=== PATIENT | male | born 1970 | race African-American/Black ===

== ENCOUNTER 2020-03-26 09:44 | Emergency (ER) | payer SELFPAY ==
[~2020-03-26] VITALS: Ht 185.4 cm; Wt 120.0 kg
[2020-03-26 10:26] LABS: BASOPHILS % (AUTO) 0.5 % (0.0-2.0); EOSINOPHILS % (AUTO) 4.2 % (1.0-6.0); HEMATOCRIT 40.7 % (41-53); HEMOGLOBIN 13.2 g/dL (13.5-17.5); LYMPHOCYTES % (AUTO) 26.7 % (22.0-44.0); MEAN CORPUSCULAR HEMOGLOBIN 30.7 pg (26.0-34.0); MEAN CORPUSCULAR HGB CONC 32.4 G/dL (31.0-37.0); MEAN CORPUSCULAR VOLUME 95 fL (80-100); MONOCYTES # (AUTO) 0.4 K/uL (0.1-1.0); MONOCYTES % (AUTO) 10.9 % (2.0-9.0); NEUTROPHILS # (AUTO) 2.1 K/uL (1.8-7.7); NEUTROPHILS % (AUTO) 57.7 % (40.0-70.0); PLATELET COUNT (AUTO) 185 K/uL (150-450); RED BLOOD CELL COUNT(AUTO) 4.29 MIL/uL (4.50-5.90); RED CELL DISTRIBUTION WIDTH 13.6 % (11.5-14.5)
[2020-03-26 10:39] LABS: ANION GAP 9 mmol/L (8-16); CARBON DIOXIDE 23 mmol/L (22-29); CHLORIDE 107 mmol/L (98-107); CREATININE 1.08 mg/dL (0.60-1.30); GLOMERULAR FILTR. RATE CALC > 60 mL/min (>60); GLUCOSE,RANDOM 162 mg/dL (70-110); POTASSIUM 3.5 mmol/L (3.5-5.1); SODIUM SERUM 139 mmol/L (136-145); UREA NITROGEN, BLOOD 16 mg/dL (7-18)
[2020-03-26 10:43] LABS: AMMONIA 32 umol/L (11-32); INR 1.1 (0.9-1.1); PROTHROMBIN TIME 11.2 SEC (9.4-11.6); TROPONIN I < 0.02 ng/mL (0.00-0.05)
[2020-03-26 10:51] LABS: LACTIC ACID 2.3 mmol/L (0.4-2.0)
[2020-03-26] MEDS ORDERED: SODIUM CHLORIDE 0.9% 1,000 ML IV ONE (11:00)
[2020-03-26 11:11] LABS: ALANINE AMINOTRANSFERASE 63 U/L (12-78); ALBUMIN 2.7 g/dL (3.4-5.0); ALKALINE PHOSPHATASE 73 U/L (46-116); ASPARTATE AMINOTRANSFERASE 48 U/L (15-37); BILIRUBIN,TOTAL 0.3 mg/dL (0.1-1.0); CREATINE KINASE, TOTAL ONLY 843 U/L (39-308); TOTAL PROTEIN, SERUM 6.3 g/dL (6.4-8.2)
[2020-03-26 12:39] VITALS: BP 138/80
[2020-03-26] MEDS ORDERED: BACITRACIN 0.9 GM PACKET OINTMENT TP ONE ×2 (13:17→13:30)
== END 2020-03-26 14:00 | disposition home or self-care (01) ==
LOC: EMS 09:51
DX: F16.129 Hallucinogen abuse with intoxication, unspecified (principal); R45.1 Restlessness and agitation
CPT/HCPCS: 36415; 71045; 80053; 82140; 82550; 83605; 84484; 85025; 85610; 85730; 93005; 96360; 96361; 99285; G0480; J7030

== ENCOUNTER 2020-04-02 12:46 | Emergency (ER) | payer SELFPAY ==
[~2020-04-02] VITALS: Ht 195.6 cm; Wt 113.6 kg
[2020-04-02 13:23] VITALS: BP 146/96
== END 2020-04-02 14:52 | disposition home or self-care (01) ==
LOC: EMS 12:52
DX: S71.112D Laceration without foreign body, left thigh, subsequent encounter (principal); F17.210 Nicotine dependence, cigarettes, uncomplicated; X58.XXXD Exposure to other specified factors, subsequent encounter
CPT/HCPCS: 99281; Z7502